=== PATIENT | male | born 1990 | race Caucasian/White ===

== ENCOUNTER 2021-07-05 20:18 | Emergency (ER) | payer OTHER ==
[~2021-07-05] VITALS: Ht 187.9 cm; Wt 113.4 kg
[2021-07-05] MEDS ORDERED: CLINDAMYCIN HC300 MG PO (20:45)
[2021-07-05] MEDS ORDERED: NAPROXEN250 MG PO (20:45)
[2021-07-05 21:12] LABS: BASO % 0.3 % (0.0-1.0); EOS # 0.1 10*3/uL (0.0-0.4); EOS % 0.6 % (1.0-4.0); HEMATOCRIT 36.8 % (42.0-52.0); LYMPH # 0.7 10*3/uL (1.3-4.4); LYMPH % 8.3 % (27.0-41.0); MEAN CELL VOLUME 82.1 fl (80.0-94.0); MEAN CORPUSCULAR HGB 28.8 pg (27.0-31.0); MEAN CORPUSCULAR HGB CONC 35.1 g/dl (33.0-37.0); MEAN PLATELET VOLUME 9.4 fl (9.6-12.3); MONO # 0.5 10*3/uL (0.1-1.0); MONO % 5.3 % (3.0-9.0); NEUT # 7.4 10*3/uL (2.3-7.9); NEUT % 85.2 % (47.0-73.0); PLATELET COUNT AUTOMATED 218 10*3/uL (130-400); RED BLOOD COUNT 4.48 10*6/uL (4.50-5.90); RED CELL DISTRI WIDTH 12.5 % (0-14.5); WHITE BLOOD COUNT 8.7 10*3/uL (4.8-10.8)
[2021-07-05 21:23] LABS: BUN 10 mg/dl (7-24); CHLORIDE 106 mmol/L (98-107); CREATININE 1.04 mg/dL (0.70-1.30); POTASSIUM 3.2 mmol/L (3.5-5.1); SODIUM 137 mmol/L (136-145)
== END 2021-07-05 20:56 | disposition home or self-care (01) ==
LOC: ED 20:18
PROVIDERS: Internal Medicine
DX: K04.7 Periapical abscess without sinus (principal); N45.1 Epididymitis; Z88.0 Allergy status to penicillin

== ENCOUNTER 2023-03-19 15:30 | Emergency (ER) | payer OTHER ==
[~2023-03-19] VITALS: Ht 187.9 cm; Wt 127.0 kg
[~2023-03-19 15:30] MED LIST: CLINDAMYCIN HC300 MG PO; NAPROXEN250 MG PO
[2023-03-19 16:06] LABS: BASO % 0.4 % (0.0-1.0); EOS # 0.5 10*3/uL (0.0-0.4); EOS % 4.5 % (1.0-4.0); HEMATOCRIT 43.3 % (42.0-52.0); LYMPH # 1.7 10*3/uL (1.3-4.4); LYMPH % 16.8 % (27.0-41.0); MEAN CELL VOLUME 83.6 fl (80.0-94.0); MEAN CORPUSCULAR HGB CONC 34.6 g/dl (33.0-37.0); MEAN PLATELET VOLUME 9.5 fl (9.6-12.3); MONO # 0.6 10*3/uL (0.1-1.0); MONO % 5.6 % (3.0-9.0); NEUT # 7.3 10*3/uL (2.3-7.9); NEUT % 72.4 % (47.0-73.0); PLATELET COUNT AUTOMATED 263 10*3/uL (130-400); RED BLOOD COUNT 5.18 10*6/uL (4.50-5.90); RED CELL DISTRI WIDTH 12.9 % (0-14.5); WHITE BLOOD COUNT 10.1 10*3/uL (4.8-10.8)
[2023-03-19 16:28] LABS: ALKALINE PHOSPHATASE 72 U/L (46-116); BUN 11 mg/dl (9-23); CHLORIDE 104 mmol/L (98-107); LIPASE 26 U/L (12-53); POTASSIUM 3.9 mmol/L (3.4-5.1); SGPT/ALT 26 U/L (10-49); TOTAL PROTEIN 7.3 gm/dL (6.0-8.0)
[2023-03-19] MEDS ORDERED: ONDANSETRON4 MG SL (17:34)
== END 2023-03-19 18:01 ==
LOC: ED 15:30
PROVIDERS: Nurse Practitioner Family
DX: R10.32 Left lower quadrant pain (principal); R11.0 Nausea; Z88.0 Allergy status to penicillin; Z90.49 Acquired absence of other specified parts of digestive tract

== ENCOUNTER → 2023-10-29 | Outpatient (CLI) | payer BC ==
[~2023-10-29] MED LIST changes: +ONDANSETRON4 MG SL
== END | disposition home or self-care (01) ==
LOC: US 01:55
PROVIDERS: ATTEND Internal Medicine Nephrology
DX: K76.0 Fatty (change of) liver, not elsewhere classified (principal); R16.0 Hepatomegaly, not elsewhere classified

== ENCOUNTER 2025-03-27 16:56 | Emergency (ER) | payer OTHER ==
[~2025-03-27] VITALS: Ht 187.9 cm; Wt 117.9 kg
[2025-03-27] MEDS ORDERED: Dexamethasone Sodium Phospha 20 MG/5 ML VIAL IM ONE (17:30)
[2025-03-27] MEDS ORDERED: METHOCARBAMOL 750 MG TAB PO ONE (17:30)
[2025-03-27] MEDS ORDERED: PREDNISONE20 M1 PO (18:38)
[2025-03-27] MEDS ORDERED: METHOCARBAMOL750 M1 PO (18:38)
== END 2025-03-27 19:29 | disposition home or self-care (01) ==
LOC: ED 16:56
DX: S16.1XXA Strain of muscle, fascia and tendon at neck level, initial encounter (principal); M54.12 Radiculopathy, cervical region; Z88.0 Allergy status to penicillin; X58.XXXA Exposure to other specified factors, initial encounter; Y93.89 Activity, other specified; Y92.89 Other specified places as the place of occurrence of the external cause; Y99.8 Other external cause status